=== PATIENT | male | born 1950 | race Caucasian/White ===

== ENCOUNTER → 2020-02-02 12:04 | Outpatient (CLI) | payer OTHER, SELFPAY ==
--- NOTE | ~2020-02-02 | MR_ITS ---
EXAMINATION: MR lumbar spine wo con DATE: 02/02/2020 12:59 INDICATION: Low back pain and right leg pain. Lumbar laminectomy. TECHNIQUE: Magnetic resonance imaging (MRI) of the lumbar spine was performed without intravenous con trast. Sequences included sagittal T2-weighted FSE, sagittal T2-weighted FS FSE, sagittal T1-weighted FSE, and axial T2-weighted FSE. COMPARISON: Lumbar spine MRI 09/07/2018 FINDINGS: There is 21 degrees dextroscoliosis of lumbar spine. There is mild chronic anterior wedging of T11-L1 vertebral bodies. There is moderately decreased disc height at T12-L1, mildly decreased di sc height at L1-L2 and L2-L3, severely decreased disc height at L3-L4, moderately decreased disc heig ht at L4-L5, and severely decreased disc height at L5-S1. The distal spinal cord signal intensity is normal. The conus medullaris is at T12-L1. The following disc levels are specifically discussed: T12-L1: The disc is bulging. There is mild bilateral facet joint osteoarthritis. There is mild bilate ral neural foraminal stenosis. There is mild central canal stenosis. L1-L2: The disc is bulging. There is mild right and moderate left facet joint osteoarthritis. There i s mild bilateral neural foraminal stenosis. There is mild central canal stenosis. L2-L3: The disc is bulging and has an annular fissure. There is moderate bilateral facet joint osteoa rthritis. There is moderate bilateral neural foraminal stenosis. There is mild central canal stenosis . L3-L4: The disc is bulging and has an annular fissure. There is mild right and moderate left facet rylan int osteoarthritis. There is moderate bilateral neural foraminal stenosis. There is mild central brianne l stenosis. L4-L5: The disc is bulging and has an annular fissure. There is severe right and moderate left facet joint osteoarthritis. There is severe right and moderate left neural foraminal stenosis. There is mod erate central canal stenosis. L5-S1: The disc is bulging. There is mild right and moderate left facet joint osteoarthritis. There i s moderate right and mild left neural foraminal stenosis. There is mild central canal stenosis. IMPRESSION: 1. Severe lumbar spondylosis with improvement in central canal stenosis at L3-L4 and L4-L5 status pos t posterior decompression. 2. Lumbar dextroscoliosis. Reviewed, dictated and finalized at location A. IMPRESSION: 1. Severe lumbar spondylosis with improvement in central canal stenosis at L3-L 4 and L4-L5 status post posterior decompression. 2. Lumbar dextroscoliosis.
== END ==
PROVIDERS: PCP Family Medicine
DX: Z98.890 Other specified postprocedural states (principal); M47.896 Other spondylosis, lumbar region
CPT/HCPCS: 72148